=== PATIENT | female | born 1945 | race Caucasian/White ===

== ENCOUNTER 2019-02-28 13:32 | Inpatient (IN) ==
[2019-02-28] MEDS ORDERED: Naloxone 0.4 MG/ML INJ IVP PRN (23:55)
--- NOTE | 2019-02-28 23:55 | Internal Med History&Physical ---
<Suze Collinsdang Brunner - Last Filed: 03/01/19 03:23> Date of Encounter: 03/01/19 Time of Encounter: 23:00 Internal Medicine - H&P: HPI Chief complaint: palpitations Admitted From: Hospital to Hospital Transfer History of present illness: Ms. Negrete is a 74 year old female with past medical history significant for CAD s/p CABG 2016 and 1 MARY placed in November of 2018, atrial fibrillation on coumadin, DM2, HTN, and RA. She initially presented to [facility] with complaints of shortness of breath and low BP. Reported to have been prog ressively worsening over the past few weeks and is accompanied by fatigue. BP at [facility] was reported to be 57/34. A right IJ CVC was placed and the patient was started on IV fluids and Levophed for BP support. The patient was admitted to the [facility] ICU. The pt reportedly improved and the Levophed was weaned off, however this morning (02/28/19) the patient reported to have more shortness of breath and palpitations. She was noted to have atrial fibrillation paroxysmally prior to this while at [facility]. HR was reported to be persistently elevated in 160s despite Cardizem drip. At that time pt was placed on Amiodarone drip and pt requested for transfer to [facility]. During the encounter with this provider, the pt states she is feeling better than she was this AM. States she no longer is experiencing palpitations and her shortness of breath has improved significantly. She denies any cough or whe ezing. Denies any recent illnesses with no fever or chills. She denies any chest pain, abdominal pain, nausea, vomiting, or diaphoresis. She denies any difficulty urinating, painful urination, or hematuria. She is requesting the Faye catheter be removed, which was placed while she was in the [facility] ICU. Past Med Surg Social Fam HX - Past Medical History Medical history: atrial fibrillation, COPD, diabetes, myocardial infarction Additional medical history: BLACK LUNG Psychiatric history: depression - Past Surgical History Surgical History: coronary bypass (CABG) Additional surgical history: NOSE SURGERY - Social History Smoking Status: Former smoker Smokeless Tobacco Status: No Alcohol use: none Drug use: none - Family History Mother Age: 83 Living Status: Cause of : natural causes Hx Family Cardiac Disorders: No Hx Family Respiratory Disorders: No Hx Family Cancer: No Hx Family GI Disorders: No Hx Family Genitourinary Disorders: No Internal Medicine - H&P: Meds Albuterol Sulfate [Albuterol Inhaler] 2 puff IH Q6H PRN 11/15/18 [History] Atorvastatin Calcium 80 mg PO DAILY 11/15/18 [History] Famotidine [Acid Controller] 20 mg PO BID 11/15/18 [History] Fluticasone/Vilanterol [Breo Ellipta 100-25 Mcg INH] 1 each IH DAILY 11/15/18 [History] GuaiFENesin/Pseudophedrine [Mucinex D] 1 each PO BID PRN 11/15/18 [History] HYDROmorphone [Dilaudid] 4 mg PO Q8H PRN 11/15/18 [History] Insulin NPH/REG 70/30 [HumuLIN 70/30 VIAL] 10 - 20 unit SQ TIDWM 11/15/18 [History] Lisinopril [Zestril] 5 mg PO DAILY 11/15/18 [History] Methimazole [Tapazole] 10 mg PO DAILY 11/15/18 [History] Metoprolol Succinate [Toprol Xl] 75 mg PO DAILY 11/15/18 [History] Nitroglycerin [Nitrostat] 0.4 mg SL Q5M PRN 11/15/18 [History] Potassium Chloride [K-Tab ER] 20 meq PO DAILY 11/15/18 [History] Pregabalin [Lyrica] 75 mg PO BID 11/15/18 [History] Sennosides [Senna] 1 tab PO HS 11/15/18 [History] Trazodone HCl 100 mg PO HS 11/15/18 [History] Warfarin [Coumadin] 2 mg PO SUMOWEFRSA@1800 11/15/18 [History] Warfarin [Coumadin] 4 mg PO TUTH@1800 11/15/18 [History] Aspirin 81 mg PO DAILY #30 tab.chew 11/16/18 [Rx] Clopidogrel [Plavix] 75 mg PO DAILY #30 tablet 11/16/18 [Rx] Allergy/AdvReac Type Severity Reaction Status Date / Time Barium Iodide Allergy Swelling Verified 11/15/18 09:35 of Lip/Tongue/Throat iodine Allergy Hives Verified 10/11/18 10:11 light sensitive medications Allergy Swelling Uncoded 11/15/18 09:35 of Lip/Tongue/Throat All Systems PM: A 10-system review of systems was performed and is negative for pertinent findi ngs except as documented above in the HPI. - Constitutional Constitutional: fatigue, weakness, no chills, no excessive sweating, no fever(s) - EENT Eyes: no blurry vision, no change in vision - Cardiovascular Cardiovascular ROS IM: dyspnea, palpitations, no chest pain, no diaphoresis, no lightheadedness - Respiratory Respiratory: dyspnea, no cough, no wheezing, no excessive phlegm production, no change in phlegm color - Gastrointestinal Gastrointestinal: diarrhea, no abdominal pain, no hematochezia, no melena, no nausea, no vomiting - Genitourinary Genitourinary: no difficulty urinating, no dysuria, no flank pain, no hematuria, no urinary frequency, no urinary hesitancy, no urinary incontinence, no urinary urgency - Integumentary Integumentary IM: no new lesions, no unusual bruising - Neurological Neurological ROS: weakness, no headache(s), no numbness, no tingling - Constitutional Vitals: Temp Pulse Resp BP Pulse Ox 98.5 F 81 17 133/87 98 02/28/19 23:40 02/28/19 23:40 02/28/19 23:40 02/28/19 23:40 02/28/19 23:40 General appearance: Present: cooperative, A&O X 3, pleasant, no acute distress, answers questions appropriately Exam: Constitutional: Well-developed female in no acute distress Head: Normocephalic, atraumatic Eyes: PERRL, EOMI, conjunctiva pink, sclera anicteric Neck: trachea midline, right IJ CVC in place Lungs: Clear to auscultation bilaterally. Nonlabored breathing. No wheezes, rales, or rhonchi noted. Cardiac: Irregularly irregular. +s1 +s2 No murmurs, clicks, or rubs noted. GI: Abdomen soft, nontender, nondistended. Extremities: Warm, radial pulses palpable and symmetrical. No cyanosis, pedal edema, or calf tenderness. Neuro: Alert and oriented 3. No focal deficits. Normal speech. Skin: Warm, dry, and intact. Internal Med - H&P Results - Labs CBC & Chem 7: 03/01/19 00:10 03/01/19 00:10 - Assessment and Plan (1) Atrial fibrillation with RVR Current Visit: Yes Status: Acute Assessment and plan: Reported to be refractory to Cardizem drip at [facility] Continue Amio drip at this time Will continue to monitor closely on telemetry Replete potassium and magnesium with goals of 4 and 2 respectively Continue anticoagulation with Coumadin at this time (2) CAD (coronary artery disease) Current Visit: Yes Status: Chronic Assessment and plan: Known hx with stent placed in November of 2018. Also s/p CABG in 2017 Continue home ASA, Plavix, and statin at this time Qualifiers: Coronary Disease-Associated Artery/Lesion type: [place] artery [place] vs. transplanted heart: [place] heart Associated angina: with stable angina Qualified Code(s): I25.118 - Atherosclerotic heart disease of [place] coronary artery with other forms of angina pectoris (3) COPD (chronic obstructive pulmonary disease) Current Visit: Yes Status: Acute Assessment and plan: Does not appear to be in acute exacerbation Continue home inhaler Qualifiers: COPD type: unspecified COPD Qualified Code(s): J44.9 - Chronic obstructive pulmonary disease, unspecified (4) Diabetes mellitus Current Visit: Yes Status: Chronic Assessment and plan: Diabetic and Cardiac diet ACHS accuchecks and SSI Qualifiers: Diabetes mellitus type: type 2 Diabetes mellitus termite renewal inspector insulin use: unspecified termite renewal inspector insulin use status Diabetes mellitus complication status: without complication Qualified Code(s): E11.9 - Type 2 diabetes mellitus without complications (5) Hx of CABG Current Visit: Yes Status: Chronic Assessment and plan: Hx of CABG from 2017 (6) DVT prophylaxis Current Visit: Yes Status: Acute Assessment and plan: On Coumadin (7) Foot fracture, right Current Visit: Yes Status: Acute Assessment and plan: Pt reports fracturing her right foot after a mechanical fall approximately 1 month ago States she wore a boot for approximately 4 weeks but stopped a few days ago Not experiencing any significant pain at this time May consider podiatry consult if pain worsens Qualifiers: Encounter type: subsequent encounter Fracture type: closed Fracture healing: with routine healing Qualified Code(s): S92.901D - Unspecified fracture of right foot, subsequent encounter for fracture with routine healing - Time Spent With Patient Total time spent is greater than 50% in coordination of care (as documented) at patient's floor/unit and/or counseling patient: <Noam Bourne - Last Filed: 03/01/19 08:15> Date of Encounter: 03/01/19 Internal Medicine - H&P: HPI History of present illness: Ms. Negrete is a 74 year old female All Systems PM: A 10-system review of systems was performed and is negative for pertinent findings except as documented above in the HPI. - Constitutional Vitals: Temp Pulse Resp BP Pulse Ox 98.1 F 137 18 124/90 98 03/01/19 07:35 03/01/19 07:35 03/01/19 07:35 03/01/19 07:35 03/01/19 07:35 Internal Med - H&P Results - Labs CBC & Chem 7: 03/01/19 00:10 03/01/19 00:10 Labs: Short CBC 03/01/19 Range/Units 00:10 WBC 8.6 (4.3-11.1) K/mcL Hgb 10.1 L (11.5-15.4) g/dL Hct 31.1 L (35.3-44.9) % Plt Count 189 (140-400) K/mcL Neutrophils # 5.8 (1.6-8.9) K/mcL BMP 03/01/19 00:10 Sodium 138 Potassium 3.4 L Chloride 108 H Carbon Dioxide 22 L BUN 5 L Creatinine 0.70 Glucose 152 H Calcium 8.9 Cardiac Enzymes 03/01/19 03/01/19 Range/Units 00:10 05:46 Troponin I 0.03 0.03 (< 0.04) ng/mL - Assessment and Plan (1) CAD (coronary artery disease) Current Visit: Yes Status: Chronic Qualifiers: Coronary Disease-Associated Artery/Lesion type: [place] artery [place] vs. transplanted heart: [place] heart Associated angina: with stable angina Qualified Code(s): I25.118 - Atherosclerotic heart disease of [place] coronary artery with other forms of angina pectoris (2) Hx of CABG Current Visit: Yes Status: Chronic (3) Atrial fibrillation with RVR Current Visit: Yes Status: Acute (4) DVT prophylaxis Current Visit: Yes Status: Acute (5) Diabetes mellitus Current Visit: Yes Status: Chronic Qualifiers: Diabetes mellitus type: type 2 Diabetes mellitus termite renewal inspector insulin use: unspecified care home insulin use status Diabetes mellitus complication status: without complication Qualified Code(s): E11.9 - Type 2 diabetes mellitus without complications (6) COPD (chronic obstructive pulmonary disease) Current Visit: Yes Status: Acute Qualifiers: COPD type: unspecified COPD Qualified Code(s): J44.9 - Chronic obstructive pulmonary disease, unspecified (7) Foot fracture, right Current Visit: Yes Status: Acute Qualifiers: Encounter type: subsequent encounter Fracture type: closed Fracture heal ing: with routine healing Qualified Code(s): S92.901D - Unspecified fracture of right foot, subsequent encounter for fracture with routine healing - Time Spent With Patient Total time spent is greater than 50% in coordination of care (as documented) at patient's floor/unit and/or counseling patient: - Attending Attestation I saw and evaluated the patient. I reviewed the residents note, performed my o wn physical examination and agree with findings and plan as documented in the residents note. Patient seen and examined on 03/01/19. Afib rate improved on amiodarone drip. Will consult cardiology today. Patient otherwise no complaints at this time. Continue to monitor INRs. Possibly can remove right central line if other peripheral IVs are functional.
[2019-03-01] MEDS ORDERED: *HR* Dextrose 50 % in Water (Syg) 50 ML SYRINGE IVP PRN (00:01)
[2019-03-01] MEDS ORDERED: D5% in Water 1,000 ML IVC PRN (00:01)
[2019-03-01] MEDS ORDERED: Dextrose Gel 15 GM/37.5 ML TUBE PO PRN ×2 (00:01)
[2019-03-01] MEDS ORDERED: *HR* HYDROmorphone 4 MG TABLET PO PRN (00:03)
[2019-03-01] MEDS: Amiodarone Premix 360 MG/200 ML BAG IVC SCH ×2 (00:26→06:15)
[2019-03-01 00:58] LABS: Basophils # 0.1 K/mcL (0.0-0.2); Basophils % 0.7 %; Eosinophils # 0.4 K/mcL (0.0-0.6); Eosinophils % 4.7 %; Hematocrit 31.1 % (35.3-44.9); Hemoglobin 10.1 g/dL (11.5-15.4); Immature Granulocytes % 0.3 % (0-4); Lymphocytes # 1.4 K/mcL (0.6-4.6); Lymphocytes % 16.6 %; Mean Corpuscular HGB Conc 32.5 g/dL (31.6-35.5); Mean Corpuscular Hemoglobin 28.3 pg (28.0-33.3); Mean Corpuscular Volume 87.1 fL (83.0-100.0); Mean Platelet Volume 9.4 fL (9.4-12.4); Monocytes # 0.9 K/mcL (0.0-1.3); Monocytes % 10.8 %; Neutrophils # 5.8 K/mcL (1.6-8.9); Platelet Count 189 K/mcL (140-400); Red Blood Count 3.57 M/mcL (3.82-4.97); Red Cell Distribution Width 14.5 % (11.5-14.5); Segmented Neutrophils % 66.9 %; White Blood Count 8.6 K/mcL (4.3-11.1)
[2019-03-01 01:11] LABS: BUN/Creatinine Ratio 7 (6-26); Blood Urea Nitrogen 5 mg/dL (8-23); Calcium 8.9 mg/dL (8.6-10.3); Carbon Dioxide 22 mEq/L (23-29); Chloride 108 mEq/L (98-107); Glucose 152 mg/dL (70-105); Magnesium 1.4 mg/dL (1.6-2.6); Osmolality,Calculated 286 (280-300); Potassium 3.4 mEq/L (3.5-5.1); Sodium 138 mEq/L (136-145); eGFR For African Americans > 60 (> 60); eGFR For Non-African Americans > 60 (> 60)
[2019-03-01 01:15] LABS: INR 3.2; Prothrombin Time 36.2 Seconds (9.4-12.1)
[2019-03-01] MEDS: Aspirin 81 MG TAB.CHEW PO SCH (08:16)
[2019-03-01] MEDS: (Fluticasone/Vilanterol [Breo Ellipta 100-25 Mcg Inh]) IH SCH (08:17)
[2019-03-01] MEDS: Insulin LISPRO 300 UNITS/3 ML VIAL SQ SCH ×3 (08:36→16:55)
--- NOTE | 2019-03-01 09:26 | Cardiology Consult Note ---
<Zena Jacobs N - Last Filed: 03/01/19 11:15> Date of Encounter: 03/01/19 Time of Encounter: 09:25 Assessment and Plan (1) Atrial fibrillation with RVR Status: Acute History of paroxysmal atrial fibrillation on coumadin. Patient reports intermittent palpitations that occur multiple times throughout the day, as well as increasing shortness of breath x1 week. Patient was initially trialled on a cardizem gtt while at [place]; however, HR was reported to remain in the 160s. She was started on amiodarone gtt, which has been more effective in controlling her rate in the 90s. Increase toprol XL from 75mg to 100mg daily; weaning amiodarone gtt as tolerated. Continue coumadin. (2) CAD (coronary artery disease) Status: Chronic History of CAD s/p CABG x3 in 2017 and PCI/MARY in November 2018. Patient reports intermittent palpitations and shortness of breath, but denies any chest pain. Troponin negative x2; ECG shows no ischemic changes. Continue home medications of aspirin, plavix, atorvastatin, and lisinopril. Qualifiers: Coronary Disease-Associated Artery/Lesion type: bypass graft [place] vs. transplanted heart: [place] heart Associated angina: angina presence unspecified Qualified Code(s): I25.810 - Atherosclerosis of coronary artery bypass graft(s) without angina pectoris Discussion w patient/family: The assessment and plan as outlined above was discussed with the patient and/or family members who expressed understanding and agreement. All questions were answered. Thank you for involving us in the care of your patient. Please call with any questions. History of Present Illness Consult date: 03/01/19 Requesting physician: Arpit Collins Consult reason: Afib RVR refractory to cardizem Chief complaint: Shortnesss of breath History of present illness: Ms. Negrete is a 74 year old female with a history of COPD, DM, and CAD s/p CABG x3 in 2017 and PCI/MARY in November 2018. She arrived at [facility] as a transfer from [place], where she initially presented for evaluation of shortness of breath. At that facility, she was noted to be hypotensive, which resolved after brief use of pressors. She reportedly had worsening shortness of breath and palpitations yesterday, and was noted to be in afib with rate in the 160s. She was started on a cardizem gtt; however, this did not improve her HR or associated symptoms, prompting initiation of amiodarone gtt. She repSortedly requested transfer to [facility] for ongoing care. Cardiology consult placed for recommendations. On evaluation this morning, patient reports feeling somewhat better, but reports ongoing shortness of breath. She states that her symptoms started approximately one week ago, and have worsened since then. She says that she frequently experiences intermittent palpitations, which occur multiple times throughout the day. She denies any chest pain, orthopnea, or lower extremity edema. She is unable to identify what medications she takes, stating "you'll have to ask my daughter", but reports compliance with her medical therapy and denies any recent medication changes. Previous cardiac testing/interventions: * [facility] 11/15/2018: MARY-pLCx. DAMON-LAD patent, SVG-OM1 occluded, SVG-RPDA occluded. LM nl, mLAD 100%, pLCx 90%, pRCA 100% filled by L-R collaterals. * [facility] 10/11/2018: Technically challenging due to irregular heart rhythm. Gated data may be compromised. Medium sized moderate to severe intensity largely fixed perfusion defect involving the inferior and inferolateral william possibly representing infarct. Small sized, severe intensity stress perfusion defect involving the apex likely represents ischemia. Gated EF = 50%. There is transient ischemic dilatation. * [facility] 10/11/2018: EF 45-50 %. Technically challenging due to suboptimal echocardiographic windows. Normal sinus rhythm with frequent ectopy. Definity echo contrast was used. Grossly, LV systolic function appears low normal to mildly reduced. Even with use of Definity, LV systolic function not well quantified. Atypical septal motion consistent with post-operative status. LV diastolic dysfunction with elevated filling pressures. RV is not optimally v isualized. No significant valvular dysfunction. No pulmonary hypertension based on TR signal obtained. * [facility]TE 05/02/2017: EF 25%. Mild concentric LVH. Globally decreased left ventricular function. Grade II diastolic dysfunction. Thickening/calcification in the aortic annular region. Trace aortic regurgitation. Thickened mitral valve leaflets. Mild mitral annular calcification. Trace mitral and tricuspid regurgitation. * [facility] ([facility]) 04/28/2017: 3-V CAD. pLM 20%, dLM 30-50%, pLAD 30%, mLAD 50-70%, small pD1 70-80%, pLCx 99%, pRCA 990%, dRCA 100%, collateral LAD-dRCA. Past Med Surg Social Fam HX - Past Medical History Medical history: atrial fibrillation, COPD, diabetes, myocardial infarction Additional medical history: BLACK LUNG Psychiatric history: depression - Past Surgical History Surgical History: coronary bypass (CABG) Additional surgical history: NOSE SURGERY - Social History Smoking Status: Former smoker Smokeless Tobacco Status: No Alcohol use: none Drug use: none - Family History Mother Age: 83 Living Status: Cause of : natural causes Hx Family Cardiac Disorders: No Hx Family Respiratory Disorders: No Hx Family Cancer: No Hx Family GI Disorders: No Hx Family Genitourinary Disorders: No Medications and Allergies Atorvastatin Calcium 80 mg PO DAILY 11/15/18 [History] Famotidine [Acid Controller] 20 mg PO BID 11/15/18 [History] Fluticasone/Vilanterol [Breo Ellipta 100-25 Mcg INH] 1 puff IH DAILY 11/15/18 [History] HYDROmorphone [Dilaudid] 4 mg PO Q8H PRN 11/15/18 [History] Insulin NPH/REG 70/30 [HumuLIN 70/30 VIAL] 3 - 20 unit SQ TIDWM 11/15/18 [History] Methimazole [Tapazole] 10 mg PO DAILY 11/15/18 [History] Nitroglycerin [Nitrostat] 0.4 mg SL Q5M PRN 11/15/18 [History] Sennosides [Senna] 2 tab PO HS 11/15/18 [History] Aspirin 81 mg PO DAILY #30 tab.chew 11/16/18 [Rx] Clopidogrel [Plavix] 75 mg PO DAILY #30 tablet 11/16/18 [Rx] Metoprolol Succinate [Toprol Xl] 100 mg PO DAILY 03/01/19 [History] Warfarin Sodium 1 mg PO MOWEFR 03/01/19 [History] Warfarin Sodium 2 mg PO SUTUTHSA 03/01/19 [History] Amiodarone [Cordarone] 200 mg PO DAILY #30 tablet 03/02/19 [Rx] Levalbuterol [Xopenex] 1 puff IH Q4H PRN #1 inhaler 03/02/19 [Rx] Lisinopril [Zestril] 5 mg PO DAILY #30 tablet 03/02/19 [Rx] Allergy/AdvReac Type Severity Reaction Status Date / Time Barium Iodide Allergy Swelling Verified 11/15/18 09:35 of Lip/Tongue/Throat iodine Allergy Hives Verified 10/11/18 10:11 light sensitive medications Allergy Swelling Uncoded 11/15/18 09:35 of Lip/Tongue/Throat All Systems Review: The remainder of the systems were reviewed and are negative - Cardiovascular Cardiovascular: dyspnea at rest, dyspnea on exertion, irregular heart rhythm, palpitations, rapid heart rate, no chest pain at rest, no chest pain with ex ertion, no diaphoresis, no radiating jaw, neck or arm pain, no leg edema, no orthopnea - Respiratory Respiratory: dyspnea Physical Examination Vital Signs, Last 4 Hours Temp Pulse Resp BP Pulse Ox 03/01/19 08:30 96 136/74 03/01/19 08:00 94 138/68 03/01/19 07:35 98.1 F 137 18 124/90 98 03/01/19 07:00 98 03/01/19 06:04 71 108/53 General: Conversant, No Apparent Distress HEENT: Atraumatic, Normocephaly, Mucus Membranes Moist Neck: No JVD, Normal carotid pulses Cardiac: Normal S1 and S2, Other (irregularly irregular rate) Lungs: No Wheeze, Rales, Rhonchi, Other (diffusely decreased breath sounds bilaterally) Neuro: Alert and responsive, No focal deficits noted Abdomen: Soft, Non-Tender Skin: No rashes noted on visualized skin Musculoskeletal: No Chest Wall Tenderness Extremities: No Clubbing, No Cyanosis, No Edema, Normal Pulses Results 03/01/19 00:10 03/01/19 00:10 Lab Results 03/01/19 03/01/19 03/01/19 00:10 00:10 00:10 WBC 8.6 Hgb 10.1 L Hct 31.1 L Plt Count 189 INR Sodium 138 Potassium 3.4 L Chloride 108 H Carbon Dioxide 22 L BUN 5 L Creatinine 0.70 Glucose 152 H Calcium 8.9 Magnesium 1.4 L Troponin I 0.03 TSH 03/01/19 03/01/19 03/01/19 00:10 00:43 05:46 WBC Hgb Hct Plt Count INR 3.2 Sodium Potassium Chloride Carbon Dioxide BUN Creatinine Glucose Calcium Magnesium Troponin I 0.03 TSH 3.087 Consult Discharge Plan - Plan Instructions: Atrial Fibrillation (DC) Referrals: Margoth Mata [Advanced Practice Nurse] - 03/12/19 1:00 pm Prescriptions: Amiodarone [Cordarone] 200 mg PO DAILY #30 tablet Levalbuterol [Xopenex] 1 puff IH Q4H PRN #1 inhaler PRN Reason: Shortness Of Breath Lisinopril [Zestril] 5 mg PO DAILY #30 tablet <Matt Foy - Last Filed: 03/02/19 22:13> Date of Encounter: 03/02/19 - Attending Attestation I have personally performed a face to face evaluation on this patient. I have reviewed and agree with the documented findings and care plan as documented by the resident. History and Exam by me shows: 74-year-old female with A. fib with RVR. Rate control has improved. I agree with increasing metoprolol to 100 mg daily and continuing amiodarone oral 200 mg daily after checking LFTs. Continue Coumadin to therapeutic INR Matt Wallis MD FACC Assessment and Plan Discussion w patient/family: The assessment and plan as outlined above was discussed with the patient and/or family members who expressed understanding and agreement. All questions were answered. Thank you for involving us in the care of your patient. Please call with any questions. History of Present Illness History of present illness: Ms. Negrete is a 74 year old female All Systems Review: The remainder of the systems were reviewed and are negative Results 03/02/19 03:50 03/02/19 03:50 Lab Results 03/02/19 03/02/19 03/02/19 03:50 03:50 03:50 WBC 12.0 H Hgb 10.8 L Hct 32.7 L Plt Count 201 INR Sodium 139 139 Potassium 3.6 3.6 Chloride 101 101 Carbon Dioxide 27 27 BUN 4 L 4 L Creatinine 0.73 0.72 Glucose 130 H 130 H Calcium 9.1 9.2 Magnesium 1.6 Total Bilirubin 0.7 AST 16 ALT 11 Alkaline Phosphatase 99 03/02/19 03/02/19 04:35 09:35 WBC Hgb Hct Plt Count INR 3.7 Sodium Potassium Chloride Carbon Dioxide BUN Creatinine Glucose Calcium Magnesium 2.2 Total Bilirubin AST ALT Alkaline Phosphatase
--- NOTE | 2019-03-01 10:15 | Event Note ---
Date of Encounter: 03/01/19 Time of Encounter: 08:11 Patient was seen and examined at bedside. All questions answered. Currently denies any nausea, vomiting or diarrhea. Has had no chest pain or palpitations. Is breathing much better. Tolerating by mouth diet. Vital signs reviewed Obese, speaks in full sentences and in no acute distress, laying flat Irregularly irregular, S1 and S2 Increased breath sounds secondary to body habitus Clear to auscultation bilaterally Abdomen is obese, bowel sounds positive, could not appreciate any organomegaly, nontender on palpation Assessment and plan A. fib with RVR CAD status post MARY-pLCx. DAMON-LAD patent, SVG-OM1 occluded, SVG-RPDA occluded. LM nl, mLAD 100%, pLCx 90%, pRCA 100% filled by L-R collaterals. COPD Diabetes Hypokalemia, hypomagnesemia, hypophosphatemia DVT prophylaxis Was started on amiodarone drip will continue Cardiology was consulted will follow recommendations Echocardiogram on October 11 with EF of 45-50%full report below Continue with Coumadin- pharmacy to dose Insulin sliding scale and adjust as per fingersticks All electrolytes replacedfollow in the morning / replace as per electrolyte protocol TTE 10/11/2018: EF 45-50 %. Technically challenging due to suboptimal echocardiographic windows. Normal sinus rhythm with frequent ectopy. Definity echo contrast was used. Grossly, LV systolic function appears low normal to mildly reduced. Even with use of Definity, LV systolic function not well quantified. Atypical septal motion consistent with post-operative status. LV diastolic dysfunction with elevated filling pressures. RV is not optimally visualized. No significant valvular dysfunction. No pulmonary hypertension based on TR signal obtained.
[2019-03-01] MEDS ORDERED: Menthol 9.1 MG LOZENGE PO PRN (10:55)
[2019-03-01] MEDS: Metoprolol XL (24 HR) Succ 50 MG TAB.ER.24H PO SCH (11:36)
--- NOTE | 2019-03-01 15:02 | Event Note ---
Date of Encounter: 03/01/19 Time of Encounter: 14:59 - Cardiology Event Note Patient currently in NSR with HR in the 70s. Amiodarone gtt weaned down and discontinued. Patient's recent laboratory studies were reviewed; she does not appear to have recently had an evaluation of her LFTs. Order placed for LFTs wi th AM laboratory studies. If normal, start amiodarone 200mg PO daily. Continue toprol XL 100mg daily. Cardiology will sign off; please reconsult if needed. Outpatient followup arranged.
[2019-03-01] MEDS ORDERED: Warfarin perPT PO PRN (18:00)
[2019-03-01] MEDS ORDERED: *HR* Warfarin 2 MG TABLET PO SCH (18:00)
[2019-03-01] MEDS ORDERED: Insulin LISPRO 300 UNITS/3 ML VIAL SQ SCH (21:00)
[2019-03-01] MEDS ORDERED: GuaiFENesin Liq 200 MG/10 ML UDC PO PRN (21:35)
[2019-03-01] MEDS: Nystatin POWDER 30 GM BOTTLE TP SCH (21:53)
[2019-03-02 04:18] LABS: Hematocrit 32.7 % (35.3-44.9); Hemoglobin 10.8 g/dL (11.5-15.4); Mean Corpuscular Hemoglobin 28.6 pg (28.0-33.3); Mean Corpuscular Volume 86.7 fL (83.0-100.0); Mean Platelet Volume 9.1 fL (9.4-12.4); Platelet Count 201 K/mcL (140-400); Red Blood Count 3.77 M/mcL (3.82-4.97); Red Cell Distribution Width 14.6 % (11.5-14.5)
[2019-03-02 04:34] LABS: BUN/Creatinine Ratio 5 (6-26); Blood Urea Nitrogen 4 mg/dL (8-23); Calcium 9.1 mg/dL (8.6-10.3); Carbon Dioxide 27 mEq/L (23-29); Chloride 101 mEq/L (98-107); Glucose 130 mg/dL (70-105); Osmolality,Calculated 287 (280-300); Potassium 3.6 mEq/L (3.5-5.1); Sodium 139 mEq/L (136-145); eGFR For African Americans > 60 (> 60); eGFR For Non-African Americans > 60 (> 60)
[2019-03-02 04:36] LABS: Alanine Aminotransferase 11 Units/L (7-52); Albumin 3.8 g/dL (3.5-5.7); Albumin/Globulin Ratio 1.5 (1.1-2.2); Alkaline Phosphatase 99 Units/L (34-104); Aspartate Amino Transferase 16 Units/L (13-39); BUN/Creatinine Ratio 6 (6-26); Bilirubin,Total 0.7 mg/dL (0.3-1.0); Blood Urea Nitrogen 4 mg/dL (8-23); Calcium 9.2 mg/dL (8.6-10.3); Carbon Dioxide 27 mEq/L (23-29); Chloride 101 mEq/L (98-107); Globulin 2.6 g/dL (2.4-3.5); Glucose 130 mg/dL (70-105); Magnesium 1.6 mg/dL (1.6-2.6); Osmolality,Calculated 287 (280-300); Phosphorous 3.2 mg/dL (2.7-4.5); Potassium 3.6 mEq/L (3.5-5.1); Sodium 139 mEq/L (136-145); Total Protein 6.4 g/dL (6.4-8.9); eGFR For African Americans > 60 (> 60); eGFR For Non-African Americans > 60 (> 60)
[2019-03-02 05:06] LABS: INR 3.7; Prothrombin Time 42.1 Seconds (9.4-12.1)
[2019-03-02] MEDS ORDERED: Nitroglycerin 0.4 MG TAB.SUBL SL PRN (08:06)
[2019-03-02] MEDS: Aspirin 81 MG TAB.CHEW PO SCH (08:16)
[2019-03-02] MEDS: Metoprolol XL (24 HR) Succ 50 MG TAB.ER.24H PO SCH (08:17)
[2019-03-02] MEDS: Insulin LISPRO 300 UNITS/3 ML VIAL SQ SCH ×2 (08:17→12:14)
[2019-03-02] MEDS: (Fluticasone/Vilanterol [Breo Ellipta 100-25 Mcg Inh]) IH SCH (08:25)
[2019-03-02] MEDS ORDERED: Famotidine 20 MG TABLET PO SCH (09:00)
[2019-03-02] MEDS ORDERED: methIMAzole 5 MG TABLET PO SCH (09:00)
[2019-03-02] MEDS ORDERED: *HR* Amiodarone 200 MG TABLET PO SCH (09:00)
[2019-03-02] MEDS: Nystatin POWDER 30 GM BOTTLE TP SCH (09:29)
--- NOTE | 2019-03-02 10:16 | Discharge Summary ---
- NOTES TO OUTPATIENT PROVIDER Notes to Outpatient Provider: check INR in the AM and adjust coumadin as discussed. follow up CT chest for nodule as OP. follow up with cardiology as OP. she is to follow up CBC, BMP and magnesium on 03/04/19 Orders not resulted at time of discharge: Pending orders 03/01/19 06:00 ECG 12 lead ECG [ECG] AM 0600 03/03/19 04:00 PT/INR [Prothrombin Time INR] [COAG] AM 0400 03/04/19 04:00 PT/INR [Prothrombin Time INR] [COAG] AM 0400 03/05/19 04:00 PT/INR [Prothrombin Time INR] [COAG] AM 0400 Date of Encounter: 03/02/19 Time of Encounter: 08:00 - Discharge Diagnosis (1) Atrial fibrillation with RVR Priority: Primary Status: Acute (2) CAD (coronary artery disease) Priority: Secondary Status: Chronic Qualifiers: Coronary Disease-Associated Artery/Lesion type: bypass graft [place] vs. transplanted heart: [place] heart Associated angina: angina presence unspecified Qualified Code(s): I25.810 - Atherosclerosis of coronary artery bypass graft(s) without angina pectoris (3) Hx of CABG Priority: Secondary Status: Chronic (4) DVT prophylaxis Priority: Secondary Status: Acute (5) Diabetes mellitus Priority: Secondary Status: Chronic Qualifiers: Diabetes mellitus type: type 2 Diabetes mellitus snf insulin use: unspecified intermediate card tender insulin use status Diabetes mellitus complication status: without complication Qualified Code(s): E11.9 - Type 2 diabetes mellitus without complications (6) COPD (chronic obstructive pulmonary disease) Priority: Secondary Status: Acute Qualifiers: COPD type: unspecified COPD Qualified Code(s): J44.9 - Chronic obstructive pulmonary disease, unspecified (7) Foot fracture, right Priority: Secondary Status: Acute Qualifiers: Encounter type: subsequent encounter Fracture type: closed Fracture healing: with routine healing Qualified Code(s): S92.901D - Unspecified fracture of right foot, subsequent encounter for fracture with routine healing Hospital course: "Ms. Negrete is a 74 year old female with a history of COPD, DM, and CAD s/p CABG x3 in 2016 and PCI/MARY in November 2018. She arrived at [facility] as a transfer from [facility], where she initially presented for evaluation of shortness of breath. At that facility, she was noted to be hypotensive, which resolved after brief use of pressors. She reportedly had worsening shortness of breath and palpitations yesterday, and was noted to be in afib with rate in the 160s. She was started on a cardizem gtt; however, this did not improve her HR or associated symptoms, prompting initiation of amiodarone gtt. She repSortedly requested transfer to [facility] for ongoing care. Cardiology consult placed for recommendations." patient presenetd to [facility] from [facility] on 03/01/19 with above presentation. cardiology was consulted and amiodrone drip was discontinued as her HR was controlled. troponins negative TSH WNL. it was recommended for her to be discharged on amiodarone 200 mg daily on discharged ( LFTs WNL). she is to continue with ASA, plavix, lisinopril ( adjusted to lower dosage to avoid hypotension), BB, coumadin and Statins. Aldactone was not recommended by the cardiology team on discharge. she understands that she will need close follow up with the cardiology team for medication adjustment. her INR was 3.7 on 03/02. discussed with patient and daughter ( has home INR machine ) she is told hold her coumdin today and adjust coumadin dosage as per INR on 03/02. she remained Chest pain free, was ambulating with out difficulty, blood pressure was stable. RIJ oline that was placed at [place] was removed ( pressure held by nursing staff with out signs of bleeding ). she remained Afebrile through out hospitalization. chest Xray with out acute disease a 14 mm nodule was incidentally found and she understands that she barby need to follow up with HRCT as OP ( was offered CT scan while in the hospital but she is eager to be discharge and would like to complete it as OP) all electrolytes were replaced. she is to follow up CBC, BMP and magnesium on 03/04/19 Discharge discussed with: patient, family, nurse, [employer] consultant - Time Spent with Patient Total time spent providing and/or coordinating discharge services: Time spent: Greater than 30 minutes (35) - Discharge Medications Prescriptions: New RX: Amiodarone [Cordarone] 200 mg PO DAILY #30 tablet Levalbuterol [Xopenex] 1 puff IH Q4H PRN #1 inhaler PRN Reason: Shortness Of Breath Continued RX: Atorvastatin Calcium 80 mg PO DAILY RX: Sennosides [Senna] 2 tab PO HS RX: Famotidine [Acid Controller] 20 mg PO BID RX: Methimazole [Tapazole] 10 mg PO DAILY RX: HYDROmorphone [Dilaudid] 4 mg PO Q8H PRN PRN Reason: Pain RX: Insulin NPH/REG 70/30 [HumuLIN 70/30 VIAL] 3 - 20 unit SQ TIDWM RX: Fluticasone/Vilanterol [Breo Ellipta 100-25 Mcg INH] 1 puff IH DAILY RX: Nitroglycerin [Nitrostat] 0.4 mg SL Q5M PRN PRN Reason: Chest Pain RX: Aspirin 81 mg PO DAILY #30 tab.chew RX: Clopidogrel [Plavix] 75 mg PO DAILY #30 tablet RX: Warfarin Sodium 2 mg PO SUTUTHSA RX: Warfarin Sodium 1 mg PO MOWEFR RX: Metoprolol Succinate [Toprol Xl] 100 mg PO DAILY Changed RX: Lisinopril [Zestril] 5 mg PO DAILY #30 tablet Discontinued RX: Albuterol Sulfate [Albuterol Inhaler] 2 puff IH Q6H PRN PRN Reason: Shortness Of Breath/Wheezing Spironolactone 25 mg PO DAILY Home Medications: Atorvastatin Calcium 80 mg PO DAILY 11/15/18 [History] Famotidine [Acid Controller] 20 mg PO BID 11/15/18 [History] Fluticasone/Vilanterol [Breo Ellipta 100-25 Mcg INH] 1 puff IH DAILY 11/15/18 [History] HYDROmorphone [Dilaudid] 4 mg PO Q8H PRN 11/15/18 [History] Insulin NPH/REG 70/30 [HumuLIN 70/30 VIAL] 3 - 20 unit SQ TIDWM 11/15/18 [History] Methimazole [Tapazole] 10 mg PO DAILY 11/15/18 [History] Nitroglycerin [Nitrostat] 0.4 mg SL Q5M PRN 11/15/18 [History] Sennosides [Senna] 2 tab PO HS 11/15/18 [History] Aspirin 81 mg PO DAILY #30 tab.chew 11/16/18 [Rx] Clopidogrel [Plavix] 75 mg PO DAILY #30 tablet 11/16/18 [Rx] Metoprolol Succinate [Toprol Xl] 100 mg PO DAILY 03/01/19 [History] Warfarin Sodium 1 mg PO MOWEFR 03/01/19 [History] Warfarin Sodium 2 mg PO SUTUTHSA 03/01/19 [History] Amiodarone [Cordarone] 200 mg PO DAILY #30 tablet 03/02/19 [Rx] Levalbuterol [Xopenex] 1 puff IH Q4H PRN #1 inhaler 03/02/19 [Rx] Lisinopril [Zestril] 5 mg PO DAILY #30 tablet 03/02/19 [Rx] Allergies/Adverse Reactions: Allergy/AdvReac Type Severity Reaction Status Date / Time Barium Iodide Allergy Swelling Verified 11/15/18 09:35 of Lip/Tongue/Throat iodine Allergy Hives Verified 10/11/18 10:11 light sensitive medications Allergy Swelling Uncoded 11/15/18 09:35 of Lip/Tongue/Throat Date of admission: 03/01/19 03:28 Primary care physician: Gurdeep Javed MD Consults: 03/01/19 05:48 Consult to Cardiology [CONS] Routine Comment: Consulting Provider: Cardiology [place] Reason for Consult: Afib RVR. was transferred from [facility]. RVR was reported to be refractory to cardizem drip. Currently on Amio drip and rate controlled. Pt does have hx of CAD with 1 stent and s/p CABG. Follows with Dr Short outpatient Call Completed: No - Constitutional Vitals: Temp Pulse Resp BP Pulse Ox 98.7 F 80 16 123/62 97 03/02/19 07:36 03/02/19 09:02 03/02/19 07:36 03/02/19 07:36 03/02/19 07:36 Exam: Obese, speaks in full sentences and in no acute distress, laying flat NCAT, PERRLA, ANicteric FROM of the neck, no JVD, RIJ site is clean RRR, S1 and S2 could not appreciate any murmurs secondary to body habits, CABG scar is well healed decreased breath sounds secondary to body habitus Clear to auscultation bilaterally Abdomen is obese, bowel sounds positive, could not appreciate any organomegaly, nontender on palpation no edema, moves all extremities Axox3 no focal deficit - Patient Status Disposition: Home, Self-Care Condition: Fair Functional capacity at discharge: independent ambulation Overall status at discharge: patient is progressing back to baseline - Discharge Instructions Follow Up With: Margoth Mata [Advanced Practice Nurse] - 03/12/19 1:00 pm - Diet and Activity Activity: increase activity as tolerated Diet: diabetic diet, low salt diet
[2019-03-02 12:06] VITALS: BP 132/79
[2019-03-02] MEDS ORDERED: Sennosides 8.6 MG TABLET PO SCH (21:00)
[2019-03-05] MEDS ORDERED: *HR* Warfarin 4 MG TABLET PO SCH (18:00)
== END 2019-03-02 15:35 | disposition home or self-care (01) | DRG 309 ==
LOC: 2NNU
PROVIDERS: ADMIT Internal Medicine Nephrology; ATTEND Internal Medicine Nephrology

== ENCOUNTER 2019-10-19 10:37 | Inpatient (IN) ==
[2019-10-19] MEDS ORDERED: *HR* Promethazine 25 MG/ML VIAL IVP PRN (15:16)
[2019-10-19] MEDS ORDERED: Naloxone 0.4 MG/ML INJ IVP PRN (15:16)
[2019-10-19] MEDS ORDERED: D5% in Water 1,000 ML IVC PRN (15:19)
[2019-10-19] MEDS ORDERED: Dextrose Gel 15 GM/37.5 ML TUBE PO PRN ×2 (15:19)
[2019-10-19] MEDS ORDERED: *HR* Dextrose 50 % in Water (Syg) 50 ML SYRINGE IVP PRN (15:19)
[2019-10-19] MEDS ORDERED: Warfarin perPT PO SCH (15:30)
[2019-10-19] MEDS ORDERED: Ipratropium/Albuterol Neb 3 ML IH PRN (15:44)
[2019-10-19 17:01] LABS: Basophils # 0.1 K/mcL (0.0-0.2); Basophils % 1.4 %; Hematocrit 32.9 % (35.3-44.9); Hemoglobin 10.5 g/dL (11.5-15.4); Immature Granulocytes % 0.4 % (0-4); Lymphocytes # 1.2 K/mcL (0.6-4.6); Lymphocytes % 20.5 %; Mean Corpuscular HGB Conc 31.9 g/dL (31.6-35.5); Mean Corpuscular Hemoglobin 29.6 pg (28.0-33.3); Mean Corpuscular Volume 92.7 fL (83.0-100.0); Mean Platelet Volume 9.9 fL (9.4-12.4); Monocytes # 0.8 K/mcL (0.0-1.3); Monocytes % 13.8 %; Neutrophils # 3.6 K/mcL (1.6-8.9); Platelet Count 220 K/mcL (140-400); Red Blood Count 3.55 M/mcL (3.82-4.97); Red Cell Distribution Width 17.2 % (11.5-14.5); Segmented Neutrophils % 63.9 %; White Blood Count 5.7 K/mcL (4.3-11.1)
[2019-10-19] MEDS: Insulin LISPRO 300 UNITS/3 ML VIAL SQ SCH (17:01)
[2019-10-19 17:20] LABS: BUN/Creatinine Ratio 9 (6-26); Blood Urea Nitrogen 5 mg/dL (8-23); Calcium 9.6 mg/dL (8.6-10.3); Carbon Dioxide 21 mEq/L (23-29); Chloride 105 mEq/L (98-107); Glucose 89 mg/dL (70-105); Magnesium 1.3 mg/dL (1.6-2.6); Osmolality,Calculated 275 (280-300); Phosphorous 2.7 mg/dL (2.7-4.5); Potassium 4.1 mEq/L (3.5-5.1); Sodium 134 mEq/L (136-145); eGFR For African Americans > 60 (> 60); eGFR For Non-African Americans > 60 (> 60)
[2019-10-19] MEDS: *HR* Digoxin 0.5 MG/2 ML AMPUL IVP SCH ×2 (17:44→23:25)
[2019-10-19] MEDS ORDERED: *HR* Digoxin 0.5 MG/2 ML AMPUL IVP SCH (18:00)
[2019-10-19 18:13] LABS: Estimated Average Glucose 128 mg/dl
[2019-10-19] MEDS: Apixaban 5 MG TABLET PO SCH (19:37)
[2019-10-19] MEDS: traZODone 50 MG TABLET PO SCH (19:38)
[2019-10-19] MEDS: Acetaminophen 325 MG TABLET PO PRN (19:39)
[2019-10-19] MEDS: Budesonide/Formoterol 160/4.5 1 PUFF INH IH SCH (19:46)
[2019-10-19] MEDS ORDERED: Melatonin 3 MG TABLET PO SCH (23:15)
[2019-10-20] MEDS ORDERED: Acetaminophen/Aspirin/Caffeine TABLET PO ONE (00:24)
[2019-10-20 02:00] LABS: Basophils # 0.1 K/mcL (0.0-0.2); Basophils % 1.2 %; Hematocrit 31.2 % (35.3-44.9); Hemoglobin 10.5 g/dL (11.5-15.4); Immature Granulocytes % 0.4 % (0-4); Lymphocytes # 1.6 K/mcL (0.6-4.6); Lymphocytes % 27.6 %; Mean Corpuscular HGB Conc 33.7 g/dL (31.6-35.5); Mean Corpuscular Hemoglobin 29.7 pg (28.0-33.3); Mean Corpuscular Volume 88.4 fL (83.0-100.0); Mean Platelet Volume 9.6 fL (9.4-12.4); Monocytes # 0.8 K/mcL (0.0-1.3); Monocytes % 14.3 %; Neutrophils # 3.2 K/mcL (1.6-8.9); Platelet Count 223 K/mcL (140-400); Red Blood Count 3.53 M/mcL (3.82-4.97); Red Cell Distribution Width 17.1 % (11.5-14.5); Segmented Neutrophils % 56.5 %; White Blood Count 5.7 K/mcL (4.3-11.1)
[2019-10-20 02:19] LABS: BUN/Creatinine Ratio 11 (6-26); Blood Urea Nitrogen 6 mg/dL (8-23); Calcium 9.2 mg/dL (8.6-10.3); Carbon Dioxide 21 mEq/L (23-29); Chloride 104 mEq/L (98-107); Glucose 89 mg/dL (70-105); Magnesium 1.3 mg/dL (1.6-2.6); Osmolality,Calculated 271 (280-300); Phosphorous 2.7 mg/dL (2.7-4.5); Potassium 4.1 mEq/L (3.5-5.1); Sodium 132 mEq/L (136-145); eGFR For African Americans > 60 (> 60); eGFR For Non-African Americans > 60 (> 60)
[2019-10-20] MEDS: Budesonide/Formoterol 160/4.5 1 PUFF INH IH SCH ×2 (07:53→20:02)
[2019-10-20] MEDS: methIMAzole 5 MG TABLET PO SCH (08:30)
[2019-10-20] MEDS: Acetaminophen 325 MG TABLET PO PRN ×2 (08:30→20:15)
[2019-10-20] MEDS: Apixaban 5 MG TABLET PO SCH ×2 (08:30→20:15)
[2019-10-20] MEDS: Aspirin 81 MG TAB.CHEW PO SCH (08:30)
[2019-10-20] MEDS: *HR* Amiodarone 200 MG TABLET PO SCH (08:30)
[2019-10-20] MEDS: Insulin LISPRO 300 UNITS/3 ML VIAL SQ SCH ×3 (08:31→16:33)
[2019-10-20] MEDS ORDERED: Perflutren Lipid Microsphere 1.3 ML in 0.9 % Sodium Chloride 8.7 ML IVP ONE (09:16)
[2019-10-20] MEDS: Metoprolol XL (24 HR) Succ 25 MG TAB.ER.24H PO SCH (10:17)
[2019-10-20] MEDS ORDERED: Ondansetron 4 MG/2 ML VIAL IVP PRN (14:32)
[2019-10-20] MEDS: GuaiFENesin Liq 200 MG/10 ML UDC PO PRN ×2 (15:24→22:36)
[2019-10-20] MEDS: traZODone 50 MG TABLET PO SCH (20:16)
[2019-10-20] MEDS ORDERED: Melatonin 3 MG TABLET PO SCH (21:00)
[2019-10-21 01:30] LABS: Basophils # 0.1 K/mcL (0.0-0.2); Basophils % 1.1 %; Hematocrit 31.3 % (35.3-44.9); Hemoglobin 10.1 g/dL (11.5-15.4); Immature Granulocytes % 0.6 % (0-4); Lymphocytes # 1.5 K/mcL (0.6-4.6); Mean Corpuscular HGB Conc 32.3 g/dL (31.6-35.5); Mean Corpuscular Hemoglobin 29.5 pg (28.0-33.3); Mean Corpuscular Volume 91.5 fL (83.0-100.0); Monocytes # 0.9 K/mcL (0.0-1.3); Monocytes % 16.4 %; Platelet Count 224 K/mcL (140-400); Red Blood Count 3.42 M/mcL (3.82-4.97); Red Cell Distribution Width 16.7 % (11.5-14.5); Segmented Neutrophils % 54.9 %; White Blood Count 5.4 K/mcL (4.3-11.1)
[2019-10-21 01:50] LABS: BUN/Creatinine Ratio 13 (6-26); Blood Urea Nitrogen 9 mg/dL (8-23); Calcium 9.3 mg/dL (8.6-10.3); Carbon Dioxide 22 mEq/L (23-29); Chloride 102 mEq/L (98-107); Glucose 103 mg/dL (70-105); Magnesium 1.6 mg/dL (1.6-2.6); Osmolality,Calculated 275 (280-300); Potassium 3.9 mEq/L (3.5-5.1); Sodium 133 mEq/L (136-145); eGFR For African Americans > 60 (> 60); eGFR For Non-African Americans > 60 (> 60)
[2019-10-21] MEDS: Budesonide/Formoterol 160/4.5 1 PUFF INH IH SCH (07:48)
[2019-10-21] MEDS: Insulin LISPRO 300 UNITS/3 ML VIAL SQ SCH ×2 (08:27→12:20)
[2019-10-21] MEDS: Aspirin 81 MG TAB.CHEW PO SCH (09:49)
[2019-10-21] MEDS: Metoprolol XL (24 HR) Succ 25 MG TAB.ER.24H PO SCH (09:49)
[2019-10-21] MEDS: methIMAzole 5 MG TABLET PO SCH (09:49)
[2019-10-21] MEDS: *HR* Amiodarone 200 MG TABLET PO SCH (09:49)
[2019-10-21] MEDS: Apixaban 5 MG TABLET PO SCH (09:51)
[2019-10-21] MEDS ORDERED: *HR* OxyCODONE/APAP 5/325 TABLET PO PRN (10:38)
[2019-10-21 12:17] VITALS: BP 100/63
[2019-10-21] MEDS ORDERED: Warfarin perPT PO SCH (15:20)
== END 2019-10-21 15:45 | DRG 309 ==
LOC: 2ANU 14:07
PROVIDERS: ADMIT Pharmacist; ATTEND Pharmacist